=== PATIENT | male | born 1985 | race American Indian/Alaskan Native ===

== ENCOUNTER 2021-06-03 12:29 | Emergency (ER) | payer SELFPAY ==
[2021-06-03] MEDS ORDERED: DIVALPROEX DR 500 MG TAB PO ONE (12:42)
[2021-06-03 12:53] VITALS: BP 104/47
--- NOTE | 2021-06-03 13:08 | Emergency Department Report ---
ED Seizure HPI - General Chief Complaint: Seizure Stated Complaint: SEIZURE Time Seen by Provider: 06/03/21 12:37 Source: EMS Mode of arrival: Stretcher Limitations: No Limitations - History of Present Illness Initial Comments: 35-year-old male with a past medical history of seizures presents to the hospital with having a seizure witnessed by bystanders at [employer]. Patient states he had preceding symptoms of twitching prior to seizure onset. He states he feels fine denies headache, tongue laceration, or urinary incontinence. Patient has not taken his Depakote 500 mg 3 times daily dosing several days but he does have some medicine at home. He also states he needs a refill. EMS reports a glucose of 81 prior to arrival. - Related Data Previous Rx's Medication Instructions Recorded Last Taken Type Divalproex Dr [Depakote Dr] 500 mg PO TID #90 tablet 06/03/21 Unknown Rx Allergies Allergy/AdvReac Type Severity Reaction Status Date / Time No Known Allergies Allergy Unverified 06/03/21 12:42 ED Review of Systems ROS: Stated complaint: SEIZURE Other details as noted in HPI Comment: All other systems reviewed and negative ED Past Medical Hx - Past Medical History Previous Medical History?: Yes Hx Seizures: Yes - Social History Smoking Status: Never Smoker - Medications Home Medications: Home Medications Medication Instructions Recorded Confirmed Last Taken Type Divalproex Dr [Depakote Dr] 500 mg PO TID #90 tablet 06/03/21 Unknown Rx ED Physical Exam - General Limitations: No Limitations - Other Other exam information: General: No acute distress Head: Atraumatic Eyes: normal appearance ENT: Moist mucous membranes Neck: Normal appearance, no midline tenderness Chest: Clear to auscultation bilaterally CV: Regular rate and rhythm Abdomen: Soft, normal bowel sounds, nontender, nondistended, no rebound or guarding Back: Normal inspection Extremity: Normal inspection, full range of motion Neuro: Alert O x 3, no facial asymmetry, speech clear, no gross motor sensory deficit, steady gait Psych: Appropriate behavior Skin: No rash ED Course Vital Signs 06/03/21 06/03/21 12:52 12:53 Temperature 97.4 F L Pulse Rate 89 Respiratory 16 Rate Blood Pressure 104/47 [Left] O2 Sat by Pulse 97 97 Oximetry ED Medical Decision Making - Medical Decision Making 35-year male with seizure disorder medication noncompliance presents to the hospital with a seizure. Patient states he had a seizure because he has not taken his Depakote in several days. Patient refused blood draw but accepted a p.o. Depakote dose. He is alert and oriented x3 in the ED he will be discharged on a refill on his medication. Critical Care Time: No Critical care attestation.: If time is entered above; I have spent that time in minutes in the direct care of this critically ill patient, excluding procedure time. ED Disposition Clinical Impression: Seizure, Noncompliance with medication regimen Disposition: 01 HOME / SELF CARE / HOMELESS Is pt being admited?: No Does the pt Need Aspirin: No Condition: Stable Instructions: Seizure, Adult Additional Instructions: Take the medication as prescribed. Follow-up with your doctor or doctor/clinic provided. Return if symptoms worsen as indicated by your discharge instructions. Prescriptions: Divalproex Dr [Depakote Dr] 500 mg PO TID #90 tablet Referrals: LIZA VIERA MD [Staff Physician] - 3-5 Days (Neurology) Time of Disposition: 13:04
== END 2021-06-03 13:47 | disposition home or self-care (01) ==
LOC: ED 12:29
DX: R56.9 Unspecified convulsions (principal); Z91.14 Patient's other noncompliance with medication regimen; Z79.899 Other long term (current) drug therapy
CPT/HCPCS: 99283